=== PATIENT | female | born 1980 | race Two or more races ===

== ENCOUNTER 2018-06-09 21:12 | Emergency (ER) | payer MEDICAID ==
[~2018-06-09] VITALS: Ht 165.1 cm; Wt 80.0 kg
[2018-06-09 21:38] VITALS: BP 136/96
== END 2018-06-10 03:08 | disposition left against medical advice (07) ==
LOC: ER 21:12
DX: S61.213A Laceration without foreign body of left middle finger without damage to nail, initial encounter (principal); X58.XXXA Exposure to other specified factors, initial encounter; Y93.89 Activity, other specified; Y92.89 Other specified places as the place of occurrence of the external cause; Y99.8 Other external cause status; Z53.21 Procedure and treatment not carried out due to patient leaving prior to being seen by health care provider

== ENCOUNTER 2018-06-10 12:36 | Emergency (ER) | payer MEDICAID ==
[~2018-06-10] VITALS: Ht 165.1 cm; Wt 78.0 kg
[2018-06-10] MEDS ORDERED: TRAMADOL 50MG TABLET PO ONE (16:45)
[2018-06-10 17:04] VITALS: BP 138/85
== END 2018-06-10 17:31 | disposition home or self-care (01) ==
LOC: ER 12:36
DX: S61.213A Laceration without foreign body of left middle finger without damage to nail, initial encounter (principal); Z98.890 Other specified postprocedural states; X58.XXXA Exposure to other specified factors, initial encounter; Y93.89 Activity, other specified; Y92.89 Other specified places as the place of occurrence of the external cause; Y99.8 Other external cause status
CPT/HCPCS: 29505; 99283